=== PATIENT | male | born 1980 | race African-American/Black ===

== ENCOUNTER 2018-04-23 16:06 | Emergency (ER) | payer SELFPAY ==
[~2018-04-23] VITALS: Ht 188 cm; Wt 102.0 kg
[2018-04-23] MEDS ORDERED: KETOROLAC 30MG/ML VIAL IV ONE (17:15)
[2018-04-23] MEDS ORDERED: MORPHINE SULFATE 10 MG/ML CPJ IV ONE (17:15)
[2018-04-23] MEDS ORDERED: METHOCARBAMOL 500MG TABLET PO ONE (17:15)
[2018-04-23 17:48] VITALS: BP 148/90
== END 2018-04-23 18:38 | disposition home or self-care (01) ==
LOC: ER 16:06
DX: M54.42 Lumbago with sciatica, left side (principal)
CPT/HCPCS: 96374; 96375; 99284; J1885; J2270

== ENCOUNTER 2019-02-11 08:04 | Emergency (ER) | payer MEDICAID ==
[~2019-02-11] VITALS: Ht 190.5 cm; Wt 120.0 kg
[2019-02-11] MEDS ORDERED: KETOROLAC 60MG/2ML VIAL IM ONE (09:00)
[2019-02-11] MEDS ORDERED: ACETAMINOPHEN WITH CODEINE 300/30MG TABLET PO ONE (09:00)
[2019-02-11 11:37] VITALS: BP 180/84
== END 2019-02-11 12:25 | disposition home or self-care (01) ==
LOC: ER 08:04
DX: M54.40 Lumbago with sciatica, unspecified side (principal); E66.01 Morbid (severe) obesity due to excess calories; Z68.33 Body mass index [BMI] 33.0-33.9, adult
CPT/HCPCS: 96372; 99283; J1885; Z7610

== ENCOUNTER 2020-08-30 10:45 | Emergency (ER) | payer MEDICAID, OTHER ==
[~2020-08-30] VITALS: Ht 190.5 cm; Wt 132.0 kg
[2020-08-30] MEDS ORDERED: KETOROLAC 30MG/ML VIAL IM ONE (11:15)
[2020-08-30 13:17] VITALS: BP 150/77
== END 2020-08-30 13:17 | disposition home or self-care (01) ==
LOC: ER 10:45
DX: S39.012A Strain of muscle, fascia and tendon of lower back, initial encounter (principal); V43.52XA Car driver injured in collision with other type car in traffic accident, initial encounter; Y93.89 Activity, other specified; Y92.488 Other paved roadways as the place of occurrence of the external cause; R03.0 Elevated blood-pressure reading, without diagnosis of hypertension
CPT/HCPCS: 72100; 96372; 99283; J1885